=== PATIENT | female | born 1945 | race Caucasian/White ===

== ENCOUNTER → 2020-04-14 | Outpatient (CLI) | payer MEDICARE, OTHER ==
--- NOTE | 2020-04-10 08:53 | NUR ---
LMOM FOR PT TO CALL BACK. ALSO LMOM WITH INSTRUCTIONS AND PHONE NUMBER TO CALL
[2020-04-14] VITALS (9 sets, daily range): BP systolic 100–130; BP diastolic 60–92; PULSE 102–127
[~2020-04-14] VITALS: Ht 165.1 cm; Wt 72.0 kg
[~2020-04-14] MED LIST: COUMADIN 5MG5 MG/TAB PO; COUMADIN 77.5 MG/TAB PO; COZAAR100 MG PO; GLUCOTROL10 MG PO; NORCO 325 MG-51 TAB PO; NORVASC 10MG10 MG PO; PROTONIX 40MG T40 MG PO
[2020-04-14 09:40] LABS: INR 1.8 (0.8-3.0)
--- NOTE | 2020-04-14 11:05 | NUR ---
pt to ultrasound via w/c at for left axilla biopsy by Dr Graf, melvin obtained and put in formulin, then pt to CT scanner via w/c for biopsy of T-11
--- NOTE | 2020-04-14 11:20 | NUR ---
Dr Graf in room, versed 0.5mg iv given over 2 min. then Fentanyl 25mcg given iv over 2 min, procedure started, pt remains awake and alert, no c/o
--- NOTE | 2020-04-14 11:40 | NUR ---
specimans obtained and put in formulin, pt sits on side of bench, bandaid over site. no c/o, no change in assessment.
== END ==
LOC: COL.RAD 08:45
PROVIDERS: Radiology Diagnostic Radiology
DX: M48.9 Spondylopathy, unspecified (principal); Z85.3 Personal history of malignant neoplasm of breast
CPT/HCPCS: J2250; J3010

== ENCOUNTER → 2020-04-28 | Outpatient (CLI) | payer MEDICARE, OTHER | LOC: COL.RAD 08:48 | DX: C50.112 Malignant neoplasm of central portion of left female breast (principal); C79.51 Secondary malignant neoplasm of bone; K43.9 Ventral hernia without obstruction or gangrene | CPT/HCPCS: A9503; Q9967 ==